=== PATIENT | female | born 1995 | race Caucasian/White ===

== ENCOUNTER 2016-12-12 08:20 | Observation (INO) | payer OTHER ==
[~2016-12-12] VITALS: Ht 160 cm; Wt 55.0 kg
[2016-12-12 08:22] VITALS: BP 124/62; PULSE 72; RESP 22; TEMP 97.7; O2SAT 99
[2016-12-12] MEDS ORDERED: SODIUM CHLOR 0.9% 1000 ML INJ 1,000 ML IV SCH ×2 (08:42→16:45)
[2016-12-12] MEDS ORDERED: PANTOPRAZOLE SODIUM 40 MG VIAL IVP ONE (08:45)
[2016-12-12] MEDS ORDERED: ONDANSETRON HCL 4 MG/2 ML VIAL IVP ONE (08:45)
[2016-12-12] MEDS ORDERED: MORPHINE SULFATE 4 MG/ML INJ IV PUSH ONE (08:45)
--- NOTE | 2016-12-12 08:46 | PD ---
HPI Chief Complaint: Abdominal Pain Time Seen by Provider: 08:35 Travel History International Travel<30 days: No Contact w/Intl Traveler<30days: No Traveled to known affect area: No History of Present Illness HPI 21-year-old female complains of right-sided abdominal pain with nausea vomiting. Patient states that the pain started this morning. Patient states the pain is severe sharp pain started on the right side abdomen with radiation to the back. Patient denies any fever chills. Patient denies any dysuria or frequency. Patient denies any vaginal discharge or bleeding. On a scale of 1- 10 the pain is a 10. PFSH Past Medical History Tetanus Vaccination: < 5 Years ?: Not LMP: 2 weeks ago Social History Alcohol Use: No Tobacco Use: No Substance Use: No Allergies-Medications (Allergen,Severity, Reaction): Coded Allergies: No Known Allergies (Unverified , 12/12/16) Reported Meds & Prescriptions Reported Meds & Active Scripts Active No Active Prescriptions or Reported Medications Review of Systems General / Constitutional: No: Fever Eyes: No: Visual changes HENT: No: Headaches Cardiovascular: No: Chest Pain or Discomfort Respiratory: No: Shortness of Breath Gastrointestinal: Positive: Nausea, Vomiting, Abdominal Pain Genitourinary: No: Dysuria Musculoskeletal: No: Pain Skin: No Rash Neurologic: No: Weakness Psychiatric: No: Depression Endocrine: No: Polydipsia Hematologic/Lymphatic: No: Easy Bruising Physical Exam Narrative GENERAL: Well-nourished, well-developed patient. SKIN: Focused skin assessment warm/dry. HEAD: Normocephalic. EYES: No scleral icterus. No injection or drainage. NECK: Supple, trachea midline. No JVD or lymphadenopathy. CARDIOVASCULAR: Regular rate and rhythm without murmurs, gallops, or rubs. RESPIRATORY: Breath sounds equal bilaterally. No accessory muscle use. GASTROINTESTINAL: Abdomen soft, nondistended. Patient has moderate tenderness on palpation right upper quadrant and right mid abdomen and right low quadrant of the abdomen. No rebound tenderness. No mass. MUSCULOSKELETAL: No cyanosis, or edema. BACK: Nontender without obvious deformity. No CVA tenderness. Pelvic exam: Patient has small amount of clear fluid in the vaginal vault. No cervical motion tenderness. Uterus is nonenlarged and nontender on palpation. No adnexal mass or tenderness. Neurologic exam normal. Data Data Last Documented VS Vital Signs Date Time Temp Pulse Resp B/P Pulse Ox O2 Delivery O2 Flow Rate FiO2 12/12/16 09:37 100 12/12/16 08:22 97.7 72 22 124/62 Orders Complete Blood Count With Diff (12/12/16 08:42) Comprehensive Metabolic Panel (12/12/16 08:42) Lipase (12/12/16 08:42) Urinalysis - C+S If Indicated (12/12/16 08:42) Ct Abd/Pel W Iv Contrast(Rout) (12/12/16 08:42) Iv Access Insert/Monitor (12/12/16 08:42) Ecg Monitoring (12/12/16 08:42) Oximetry (12/12/16 08:42) Morphine Inj (Morphine Inj) (12/12/16 08:45) Ondansetron Inj (Zofran Inj) (12/12/16 08:45) Pantoprazole Inj (Protonix Inj) (12/12/16 08:45) Sodium Chlor 0.9% 1000 Ml Inj (Ns 1000 M (12/12/16 08:42) Ed Urine Pregnancytest Poc (12/12/16 08:42) Morphine Inj (Morphine Inj) (12/12/16 09:00) Morphine Inj (Morphine Inj) (12/12/16 09:00) Iohexol 350 Inj (Omnipaque 350 Inj) (12/12/16 11:00) Morphine Inj (Morphine Inj) (12/12/16 11:30) Beta Hcg (Quant/Titer) (12/12/16 11:56) Gc And Chlamydia Pcr (12/12/16 11:56) Wet Prep Profile (12/12/16 11:56) Labs Laboratory Tests Test 12/12/16 12/12/16 08:43 10:30 White Blood Count 9.2 TH/MM3 Red Blood Count 4.28 MIL/MM3 Hemoglobin 12.1 GM/DL Hematocrit 35.6 % Mean Corpuscular Volume 83.2 FL Mean Corpuscular Hemoglobin 28.2 PG Mean Corpuscular Hemoglobin 33.9 % Concent Red Cell Distribution Width 14.9 % Platelet Count 238 TH/MM3 Mean Platelet Volume 7.8 FL Neutrophils (%) (Auto) 72.8 % Lymphocytes (%) (Auto) 19.7 % Monocytes (%) (Auto) 5.4 % Eosinophils (%) (Auto) 1.7 % Basophils (%) (Auto) 0.4 % Neutrophils # (Auto) 6.7 TH/MM3 Lymphocytes # (Auto) 1.8 TH/MM3 Monocytes # (Auto) 0.5 TH/MM3 Eosinophils # (Auto) 0.2 TH/MM3 Basophils # (Auto) 0.0 TH/MM3 CBC Comment DIFF FINAL Differential Comment Sodium Level 136 MEQ/L Potassium Level 3.4 MEQ/L Chloride Level 105 MEQ/L Carbon Dioxide Level 22.0 MEQ/L Anion Gap 9 MEQ/L Blood Urea Nitrogen 11 MG/DL Creatinine 0.97 MG/DL Estimat Glomerular Filtration 72 ML/MIN Rate Random Glucose 131 MG/DL Calcium Level 9.1 MG/DL Total Bilirubin 0.7 MG/DL Aspartate Amino Transf 19 U/L (AST/SGOT) Alanine Aminotransferase 20 U/L (ALT/SGPT) Alkaline Phosphatase 47 U/L Total Protein 7.8 GM/DL Albumin 3.9 GM/DL Lipase 179 U/L Urine Color YELLOW Urine Turbidity CLOUDY Urine pH 8.5 Urine Specific [place] 1.021 Urine Protein 30 mg/dL Urine Glucose (UA) NEG mg/dL Urine Ketones TRACE mg/dL Urine Occult Blood MOD Urine Nitrite NEG Urine Bilirubin NEG Urine Urobilinogen LESS THAN 2.0 MG/DL Urine Leukocyte Esterase NEG Urine RBC /hpf Urine WBC 6 /hpf Urine Squamous Epithelial 2 /hpf Cells Urine Amorphous Sediment FEW Urine Bacteria FEW /hpf Urine Mucus FEW /lpf Microscopic Urinalysis Comment CULT NOT INDICATED MDM Medical Decision Making Medical Screen Exam Complete: Yes Emergency Medical Condition: Yes Interpretation(s) 11:40 AM. Last Impressions Abdomen/Pelvis CT 12/12/16 0842 Signed Impressions: Service Date/Time: Monday, December 12, 2016 10:46 - CONCLUSION: 1. Prominent uterus containing moderate endometrial fluid with prominent left adnexa and associated mild hyperemia with probable left ovarian cyst and trace pelvic free fluid. Findings may be related to patient's phase of menstrual cycle. Clinical correlation for pelvic inflammatory disease is recommended. 2. Mild right- sided hydronephrosis and hydroureter extending to the mid to distal right ureter without calcified ureteral calculus. Differential considerations include right vesicoureteral reflux versus sequela of inflammatory change in the right lower quadrant/right pelvis. 3. The appendix is not directly visualized and likely obscured by changes in the pelvis. Although there are no definite secondary signs for appendicitis, early acute appendicitis cannot be excluded due to possibility of right lower quadrant inflammatory change. Andrzej Stokes MD 11:44 AM. CBC within normal limit. CMP within normal limit. UA positive with 6 WBC, large RBC. Differential Diagnosis Differential diagnosis including acute cholecystitis, nephrolithiasis, pyelonephritis, appendicitis, ovarian cyst, ovarian torsion, ectopic . Narrative Course 21-year-old female with right-sided abdominal pain with radiation to the right side the back. Normal saline solution 1 25 cc an hour. Morphine 2 mg IV. Zofran 4 mg IV. Protonix 40 mg IV. Repeated morphine 2 mg IV. Diagnosis Primary Impression: Abdominal pain Qualified Code: R10.31 - Right lower quadrant abdominal pain Admitting Information Admitting Physician Requests: Admit Scripts No Active Prescriptions or Reported Meds Aaron Kiser MD Dec 12, 2016 08:46
[2016-12-12 08:58] LABS: AUTOMATED NEUTROPHIL # 6.7 TH/MM3 (1.8-7.7); BASOPHIL % 0.4 % (0.0-2.0); EOSINOPHIL # 0.2 TH/MM3 (0-0.4); EOSINOPHIL % 1.7 % (0.0-4.0); HEMATOCRIT 35.6 % (35.0-46.0); HEMO FLAGS DIFF FINAL; LYMPH % 19.7 % (9.0-44.0); LYMPHOCYTE # 1.8 TH/MM3 (1.0-4.8); MEAN CELL VOLUME 83.2 FL (80.0-100.0); MEAN CORPUSCULAR HEMOGLOBIN 28.2 PG (27.0-34.0); MEAN CORPUSCULAR HGB CONC 33.9 % (32.0-36.0); MONO % 5.4 % (0.0-8.0); NEUT % 72.8 % (16.0-70.0); PLATELET COUNT 238 TH/MM3 (150-450); RED BLOOD COUNT 4.28 MIL/MM3 (4.00-5.30); RED CELL DISTRIBUTION WIDTH 14.9 % (11.6-17.2); WHITE BLOOD COUNT 9.2 TH/MM3 (4.0-11.0)
[2016-12-12] MEDS ORDERED: MORPHINE SULFATE 8 MG/ML INJ IV PUSH ONE ×3 (09:00→11:30)
[2016-12-12 09:21] LABS: ALT (GPT) 20 U/L (10-53); ANION GAP 9 MEQ/L (5-15); AST (GOT) 19 U/L (15-37); BLOOD UREA NITROGEN 11 MG/DL (7-18); CHLORIDE 105 MEQ/L (98-107); GLOMERULAR FILTRATION RATE 72 ML/MIN (>89); POTASSIUM 3.4 MEQ/L (3.5-5.1); SODIUM (NA) 136 MEQ/L (136-145)
[2016-12-12 09:22] LABS: ALKALINE PHOSPHATASE 47 U/L (45-117); TOTAL BILIRUBIN ADULT 0.7 MG/DL (0.2-1.0)
[2016-12-12 09:37] VITALS: O2SAT 100
[2016-12-12] MEDS ORDERED: IOHEXOL 350 MG/ML 10 ML VIAL (for RAD DIAG) IV ONE (11:00)
[2016-12-12 11:04] LABS: BACTERIA, URINE FEW /hpf; BLOOD, URINE MOD (NEG); COMMENT (UR) CULT NOT INDICATED; CULTURE IF INDICATED CULT NOT INDICATED; GLUCOSE,URINE NEG (NEG); KETONE, URINE TRACE mg/dL (NEG); MUCUS URINE FEW /lpf (OCC); NITRITE,URINE NEG (NEG); PH, URINE 8.5 (5.0-8.5); SQUAMOUS EPITHELIAL CELL URINE 2 /hpf (0-5); URINE COLOR YELLOW (YELLW/STRAW)
--- NOTE | 2016-12-12 11:29 | RADRPT ---
EXAM DATE/TIME: 12/12/2016 10:46 [facility] COMPARISON: No previous studies available for comparison. INDICATIONS : Right sided abdominal pain. Nausea and vomiting. IV CONTRAST: 90 cc Omnipaque 350 (iohexol) IV ORAL CONTRAST: No oral contrast ingested. RADIATION DOSE: 4.60 CTDIvol (mGy) MEDICAL HISTORY : None SURGICAL HISTORY : None. ENCOUNTER: Initial ACUITY: 1 day PAIN SCALE: 8/10 LOCATION: Right lower quadrant TECHNIQUE: Volumetric scanning of the abdomen and pelvis was performed. Using automated exposure control and ad justment of the mA and/or kV according to patient size, radiation dose was kept as low as reasonably achievable to obtain optimal diagnostic quality images. DICOM format image data is available electro nically for review and comparison. FINDINGS: LOWER LUNGS: The visualized lower lungs are clear. LIVER: Homogeneous density without lesion. There is no dilation of the biliary tree. No calcified gallston es. SPLEEN: Normal size without lesion. PANCREAS: Within normal limits. KIDNEYS: There is mild right-sided hydronephrosis and proximal hydroureter to the mid to distal right ureter. No radiopaque ureteral calculi is noted. Kidneys otherwise demonstrate symmetrical enhancement withou t evidence for focal mass. ADRENAL GLANDS: Within normal limits. VASCULAR: There is no aortic aneurysm. BOWEL/MESENTERY: Appendix is not directly visualized and may be obscured by prominent uterus and adnexal changes. Ther e is no significant pericecal mesenteric adenopathy. Bowel otherwise appears unremarkable without cami dence for obstruction. No pneumatosis or free air. No drainable fluid collections. ABDOMINAL WALL: Within normal limits. RETROPERITONEUM: There is no lymphadenopathy. BLADDER: Completely decompressed. REPRODUCTIVE: Uterus is prominent with moderate amount of endometrial fluid. There is increased left adnexal vascul arity with likely 2.6 cm left ovarian cyst. There is also trace amount of free fluid in the pelvis. INGUINAL: There is no lymphadenopathy or hernia. MUSCULOSKELETAL: Within normal limits for patient age. CONCLUSION: 1. Prominent uterus containing moderate endometrial fluid with prominent left adnexa and associated m ild hyperemia with probable left ovarian cyst and trace pelvic free fluid. Findings may be related to patient's phase of menstrual cycle. Clinical correlation for pelvic inflammatory disease is recommen ded. 2. Mild right-sided hydronephrosis and hydroureter extending to the mid to distal right ureter withou t calcified ureteral calculus. Differential considerations include right vesicoureteral reflux versus sequela of inflammatory change in the right lower quadrant/right pelvis. 3. The appendix is not directly visualized and likely obscured by changes in the pelvis. Although the re are no definite secondary signs for appendicitis, early acute appendicitis cannot be excluded due to possibility of right lower quadrant inflammatory change. Andrzej Stokes MD on December 12, 2016 at 11:01 Board Certified Radiologist. This report was verified electronically.
[2016-12-12 12:23] LABS: BETA HCG QUANT LESS THAN 1 MIU/ML (0-5)
[2016-12-12] MEDS ORDERED: MAGNESIUM HYDROXIDE SUSP 30 ML CUP PO PRN (13:00)
[2016-12-12] MEDS ORDERED: SODIUM CHLORIDE 0.9% FLUSH 10 ML FLUSH IV FLUSH PRN (13:00)
[2016-12-12] MEDS ORDERED: ACETAMINOPHEN/HYDROcodone 325 MG/7.5 MG TAB PO PRN (13:00)
[2016-12-12] MEDS ORDERED: HYDROmorphone HCL PF 1 MG/ML VIAL IV PUSH PRN (13:00)
[2016-12-12] MEDS ORDERED: SENNOSIDES 8.6 MG TAB PO PRN (13:00)
[2016-12-12] MEDS ORDERED: ACETAMINOPHEN/HYDROcodone 325 MG/10 MG TAB PO PRN (13:00)
[2016-12-12] MEDS ORDERED: BISACODYL 10 MG SUPP RECTAL PRN (13:00)
[2016-12-12] MEDS ORDERED: LACTULOSE SYRUP 20 GM/30 ML CUP PO PRN (13:00)
[2016-12-12] MEDS ORDERED: NALOXONE HCL 0.4 MG/ML AMP IV PRN (13:00)
[2016-12-12] MEDS ORDERED: ONDANSETRON HCL 4 MG/2 ML VIAL IVP PRN (13:00)
[2016-12-12 15:25] LABS: CHLAMYDIA PCR NOT DETECTED (NOT DETECT); NEISSERIA PCR NOT DETECTED (NOT DETECT)
[2016-12-12] MEDS ORDERED: FUROSEMIDE 40 MG/4 ML VIAL ONE (15:33)
--- NOTE | 2016-12-12 16:37 | HHI.HP ---
HPI Service [facility] Hospitalists Primary Care Physician Non-Staff Admission Diagnosis abdominal pain Diagnoses: Chief Complaint: Right sided abominal pain N/V Chills Travel History International Travel<30 Days: No Contact w/Intl Traveler <30 Da: No Traveled to Known Affected Are: No History of Present Illness Written by Joana Weinberg PA-C acting as scribe for Dr. Shearer on 12/12/16 at 16:34. This is a 21yo female without any significant PMHX who presented to [facility] ED with complaints of right sided abdominal pain. Patient states she woke up at 5am this morning with right sided abdominal pain that radiates around to the right side of her back with associated chills. Patient denies any known fevers. States she has vomited three times this morning, once at her hotel and twice while in the ED. She states her abdominal pain worsened to 10/ 10 after vomiting. She denies any dysuria or difficulty with urination. She also denies any diarrhea or constipation. Her last BM was yesterday. Her last menstrual period was 2 weeks ago. She denies any previous history of kidney stones. She denies any chest pain or SOB. In the ED, patient reports her pain is 5/10 after receiving Morphine. She is afebrile and her white count is normal. Creatinine is 0.97 and GFR is slightly reduced at 72. LFTs are WNL. CT of the abdomen was obtained and revealed mild right sided hydronephrosis and hydroureter extending to the mid to distal right ureter without calcified ureteral calculus. The appendix is not directly visualized and likely obscured by changes in the pelvis. No definite signs of appendicitis but early acute appendicitis cannot be excluded. Review of Systems Except as stated in HPI: all other systems reviewed are Neg Past Family Social History Past Medical History Denies any significant PMHX Past Surgical History Foot surgery Reported Medications Patient denies taking any prescribed medications at home Allergies: Coded Allergies: No Known Allergies (Unverified , 12/12/16) Active Ordered Medications Current Medications Medications (Trade) Dose Ordered Sig/Talita Route Start Time Stop Time Status Last Admin (NS 1000 ml Inj) 1,000 ml @ 125 mls/hr Q8H IV 12/12/16 08:42 12/12/16 16:41 12/12/16 09:18 (NS Flush) 2 ml UNSCH PRN IV FLUSH 12/12/16 13:00 (NS Flush) 2 ml BID IV FLUSH 12/12/16 21:00 (Zofran Inj) 4 mg Q6H PRN IVP 12/12/16 13:00 (Narcan Inj) 0.4 mg UNSCH PRN IV 12/12/16 13:00 (Bev-Colace) 1 tab BID PO 12/12/16 21:00 (Milk Of Magnesia Liq) 30 ml Q12H PRN PO 12/12/16 13:00 (Senokot) 17.2 mg Q12H PRN PO 12/12/16 13:00 (Dulcolax Supp) 10 mg DAILY PRN RECTAL 12/12/16 13:00 (Lactulose Liq) 30 ml DAILY PRN PO 12/12/16 13:00 ([place] 7.5-325 Mg) 1 tab Q4H PRN PO 12/12/16 13:00 ([place] 10-325 Mg) 1 tab Q4H PRN PO 12/12/16 13:00 (Dilaudid Pf Inj) 0.5 mg Q4H PRN IV PUSH 12/12/16 13:00 Family History Mother, h/o previous kidney stones otherwise alive and healthy Father, alive and healthy Social History Patient denies any history of tobacco use, EtOH consumption or illicit drug use. Physical Exam Vital Signs Vital Signs Date Time Temp Pulse Resp B/P Pulse Ox O2 Delivery O2 Flow Rate FiO2 12/12/16 09:37 100 12/12/16 08:22 97.7 72 22 124/62 99 Physical Exam GENERAL: This is a well-nourished, well-developed patient, in no apparent distress. Awake and alert. Mother at the bedside. Appears uncomfortable. SKIN: No rashes, ecchymoses or lesions. Cool and dry. HEAD: Atraumatic. Normocephalic. No temporal or scalp tenderness. EYES: Pupils equal round and reactive. Extraocular motions intact. No scleral icterus. No injection or drainage. ENT: Nose without bleeding. Throat without erythema, tonsillar hypertrophy or exudate. Uvula midline. Airway patent. NECK: Trachea midline. No lymphadenopathy. Supple, nontender, no meningeal signs. CARDIOVASCULAR: Regular rate and rhythm without murmurs, gallops, or rubs. RESPIRATORY: Clear to auscultation. Breath sounds equal bilaterally. No wheezes , rales, or rhonchi. GASTROINTESTINAL: Abdomen soft, nondistended. (+)tender to deep palpation over RLQ. No rigidity. No rebound. No hepato-splenomegaly, or palpable masses. No CVAT bilaterally. MUSCULOSKELETAL: Extremities without clubbing, cyanosis, or edema. No joint tenderness, effusion, or edema noted. No calf tenderness. Negative Homans sign bilaterally. NEUROLOGICAL: Awake and alert. Able to move all extremities. No focal neurologic findings appreciated. Normal speech. Laboratory Laboratory Tests Test 12/12/16 12/12/16 12/12/16 08:43 10:30 12:10 White Blood Count 9.2 Red Blood Count 4.28 Hemoglobin 12.1 Hematocrit 35.6 Mean Corpuscular Volume 83.2 Mean Corpuscular Hemoglobin 28.2 Mean Corpuscular Hemoglobin 33.9 Concent Red Cell Distribution Width 14.9 Platelet Count 238 Mean Platelet Volume 7.8 Neutrophils (%) (Auto) 72.8 Lymphocytes (%) (Auto) 19.7 Monocytes (%) (Auto) 5.4 Eosinophils (%) (Auto) 1.7 Basophils (%) (Auto) 0.4 Neutrophils # (Auto) 6.7 Lymphocytes # (Auto) 1.8 Monocytes # (Auto) 0.5 Eosinophils # (Auto) 0.2 Basophils # (Auto) 0.0 CBC Comment DIFF FINAL Differential Comment Sodium Level 136 Potassium Level 3.4 Chloride Level 105 Carbon Dioxide Level 22.0 Anion Gap 9 Blood Urea Nitrogen 11 Creatinine 0.97 Estimat Glomerular Filtration 72 Rate Random Glucose 131 Calcium Level 9.1 Total Bilirubin 0.7 Aspartate Amino Transf 19 (AST/SGOT) Alanine Aminotransferase 20 (ALT/SGPT) Alkaline Phosphatase 47 Total Protein 7.8 Albumin 3.9 Lipase 179 Human Chorionic Gonadotropin, LESS THAN 1 Quant Urine Color YELLOW Urine Turbidity CLOUDY Urine pH 8.5 Urine Specific [place] 1.021 Urine Protein 30 Urine Glucose (UA) NEG Urine Ketones TRACE Urine Occult Blood MOD Urine Nitrite NEG Urine Bilirubin NEG Urine Urobilinogen LESS THAN 2.0 Urine Leukocyte Esterase NEG Urine RBC Urine WBC 6 Urine Squamous Epithelial 2 Cells Urine Amorphous Sediment FEW Urine Bacteria FEW Urine Mucus FEW Microscopic Urinalysis Comment CULT NOT INDICATED Clue Cells (Wet Prep) NONE SEEN Vaginal Trichomonas (Wet Prep) NONE SEEN Vaginal Yeast (Wet Prep) NONE SEEN Chlamydia trachomatis DNA NOT DETECTED (PCR) Neisseria gonorrhoeae DNA NOT DETECTED (PCR) Result Diagram: 12/12/1643 12/12/16842 Imaging Last Impressions Abdomen/Pelvis CT 12/12/16841 Signed Impressions: Service Date/Time: Monday, December 12, 2016 10:46 - CONCLUSION: 1. Prominent uterus containing moderate endometrial fluid with prominent left adnexa and associated mild hyperemia with probable left ovarian cyst and trace pelvic free fluid. Findings may be related to patient's phase of menstrual cycle. Clinical correlation for pelvic inflammatory disease is recommended. 2. Mild right- sided hydronephrosis and hydroureter extending to the mid to distal right ureter without calcified ureteral calculus. Differential considerations include right vesicoureteral reflux versus sequela of inflammatory change in the right lower quadrant/right pelvis. 3. The appendix is not directly visualized and likely obscured by changes in the pelvis. Although there are no definite secondary signs for appendicitis, early acute appendicitis cannot be excluded due to possibility of right lower quadrant inflammatory change. Andrzej Stokes MD Assessment and Plan Assessment and Plan 21yo female without any significant PMHX who presented to [facility] ED with complaints of right sided abdominal pain. Right sided abdominal pain with chills and N/V - Etiology unknown - CT of the abdomen/pelvis shows mild right sided hydronephrosis and hydroureter extending to the mid to distal right ureter without calcified ureteral calculus. The appendix is not directly visualized and likely obscured by changes in the pelvis. No definite signs of appendicitis but early acute appendicitis cannot be excluded. - Urine test less than 1 - Pelvic exam was deferred: Wet prep done in ER, negative for clue cells, trichomonas and yeast. Chlamydia/GC probe negative. - UA positive with 6 WBC and large RBC but culture not indicated - Keep NPO for now as urology and GS have been consulted. f/u assessment and recs - IVF hydration with NS at 84 mls/hr and 20mEq KCl - pain management with [place] 5/325mg one po q 4h prn pain 1 to 5, [place] 10/ 325mg one po q4h prn pain 6 to 10 and Dilaudid 0.5mg q4h prn breakthrough pain - IV Zofran prn N/V Abnormal U/A: pt denies any urinary symptoms. Hypokalemia - mild - replete - am labs to monitor trend DVT prophylaxis - SCD/RAMIN hose bilaterally This note was transcribed by dunia Weinberg. I, Dr. Juliette Shearer personally performed the history, physical exam, and medical decision making; and confirmed the accuracy of the information in the transcribed note. Authenticated by Dr. Juliette Shearer on 12/12/16 at 16:34. Code Status full code Discussed Condition With ED physician, patient and patients mother Joana Weinberg Dec 12, 2016 16:37 Juliette Shearer MD Dec 12, 2016 18:07
--- NOTE | 2016-12-12 16:46 | RADRPT ---
EXAM DATE/TIME: 12/12/2016 15:43 [facility] COMPARISON: CT ABDOMEN & PELVIS W CONTRAST, December 12, 2016, 10:46. INDICATIONS : Hydronephrosis. Right flank pain with nausea and vomiting. DOSE: 21.9 mCi Tc99m DTPA IV MEDICATION: 40 mg Lasix IV MEDICAL HISTORY : None SURGICAL HISTORY : None. ENCOUNTER: Initial ACUITY: 1 day PAIN SCALE: 5/10 LOCATION: Right flank TECHNIQUE: Dynamic images were performed in the posterior projection for a total of 28 minutes. FINDINGS: FLOW: There is symmetric arrival of bolus to both kidneys. There is intact cortical transit on the left wit h delayed cortical transit on the right. EXCRETION: There is normal excretion on the left. There is delayed cortical transit on the left. Split function 66.5% left CONCLUSION: Asymmetric enhancement with delayed cortical transit on the right. In reviewing the CT scan in [facility] there is a 2-3 mm distal right ureteral stone. Jamal Wagoner MD on December 12, 2016 at 16:41 Board Certified Radiologist. This report was verified electronically.
[2016-12-12 17:27] VITALS: BP 109/65; PULSE 56; RESP 15; TEMP 98.5; O2SAT 100
--- NOTE | 2016-12-12 18:29 | MB ---
cc: BLAKE WARE M.D. DATE OF CONSULTATION: 12/12/2016. REASON FOR CONSULTATION: Rule out appendicitis. HISTORY OF PRESENT ILLNESS: Ms. Amin is very pleasant 21-year-old female down here on vacation from [place] who developed acute onset of right flank and right lower quadrant abdominal pain this morning. She states when she first woke up from sleep, she had the pain. She states the pain became severe and intense almost immediately. She rated the pain as a 10/10. Her mother states that she was writhing in pain. She denied any previous pain. She got very nauseous and had an episode of emesis secondary to the pain. She denied any fever or chills. She denied any change in bowel or bladder habits. She denied any gross hematuria that she was aware of. She denied any vaginal discharge. The patient was brought to [facility] for evaluation where she was seen and evaluated by Dr. Kiser. Dr. Kiser worked her up and the most likely diagnosis was a right-sided kidney stone as the patient had right flank and right lower quadrant abdominal pain. Her abdominal exam was fairly benign according to Dr. Kiser. She was noted have a normal white count as well as a dilated ureter on the right side. Dr. Kiser admitted the patient to medical service for observation. The medical service requested a surgical evaluation to rule out appendicitis. PAST MEDICAL HISTORY: None. PAST SURGICAL HISTORY: She had foot correction surgery. MEDICATIONS: She takes no medications. ALLERGIES: She has NO KNOWN DRUG ALLERGIES. SOCIAL HISTORY: She denies cigarette and alcohol use. She is down here vacationing with her family from [place]. REVIEW OF SYSTEMS: For her review of systems, please see the history of present illness. PHYSICAL EXAMINATION: VITAL SIGNS: Temperature is 97, pulse is 70, blood pressure 120/60, respiratory rate 20. GENERAL: This is a pleasant thin young female accompanied by her family in the observation pod . HEAD, EYES, EARS, NOSE, THROAT: Pupils equal and reactive to light. Sclerae are white. Oropharynx is clear and moist. NECK: Neck is supple. No masses. LUNGS: Clear to auscultation bilaterally. HEART: S1-S2 no murmur. ABDOMEN: Abdomen is completely soft. Minimal tenderness in the right lower quadrant. No rebound or guarding. No abdominal masses. Active bowel sounds are noted. Negative Rovsing's sign. Negative psoas sign. EXTREMITIES: Free range of motion x4. NEUROLOGIC: Alert and oriented x3. IMAGING STUDIES: CT scan of pelvis does not demonstrate a dilated appendix that I can appreciate. There is no significant inflammatory process in the right lower quadrant that I can appreciate. The patient does have a mild right-sided hydronephrosis and hydroureter with no obvious kidney stones. LABORATORY DATA: White blood cell count is 90, hemoglobin 12, platelet count is 238,000. Electrolytes are all within normal limits. HCG is negative. Urine is positive for a moderate amount of blood. No evidence of a urinary tract infection. IMPRESSION: Probable nephrolithiasis, seriously doubt appendicitis. PLAN: At this point based on the patient's history, physical examination, and laboratory and data imaging, I feel like appendicitis is an extremely low probability. Her acute onset of 10/10 abdominal pain in the right flank and right lower quadrant are more consistent with a kidney stone than they are appendicitis. She has a normal white count. She has no fever. Her abdominal exam is very benign anteriorly. I explained to her family that we could certainly re-check her abdominal exam in the morning as well as her white count. If she develops right lower quadrant abdominal pain or an elevated white count, we could consider a diagnostic laparoscopy but I explained to them that I think this would be a low probability at this point. The family expressed gratitude towards my evaluation and the fact that we do not need any surgical procedure, at least this evening. From my standpoint, feel free to go ahead and feed the patient and then she can be made NPO after midnight. Thank you so much for allowing me to participate in the care of this patient. MD CARLOS ALBERTO Beyer/TAMARA /4:14 PM /6:24 PM
[2016-12-12] MEDS: NS + KCL 20 MEQ INJ 1,000 ML IV SCH (18:47)
[2016-12-12] MEDS: SODIUM CHLORIDE 0.9% FLUSH 10 ML FLUSH IV FLUSH SCH (20:23)
[2016-12-12] MEDS: DOCUSATE SODIUM 50 MG/SENNA 8.6 MG TAB PO SCH (20:24)
[2016-12-12 20:43] VITALS: BP 106/80; PULSE 63; RESP 18; TEMP 97.8; O2SAT 99
[2016-12-13 05:12] VITALS: BP 130/63; PULSE 59; RESP 18; TEMP 97.9; O2SAT 99
[2016-12-13 07:07] LABS: BASOPHIL % 0.2 % (0.0-2.0); EOSINOPHIL # 0.2 TH/MM3 (0-0.4); EOSINOPHIL % 2.1 % (0.0-4.0); HEMATOCRIT 35.1 % (35.0-46.0); HEMO FLAGS DIFF FINAL; LYMPH % 25.7 % (9.0-44.0); LYMPHOCYTE # 2.4 TH/MM3 (1.0-4.8); MEAN CELL VOLUME 83.7 FL (80.0-100.0); MEAN CORPUSCULAR HEMOGLOBIN 27.8 PG (27.0-34.0); MEAN CORPUSCULAR HGB CONC 33.2 % (32.0-36.0); MONO % 8.8 % (0.0-8.0); NEUT % 63.2 % (16.0-70.0); PLATELET COUNT 237 TH/MM3 (150-450); RED BLOOD COUNT 4.19 MIL/MM3 (4.00-5.30); RED CELL DISTRIBUTION WIDTH 15.1 % (11.6-17.2); WHITE BLOOD COUNT 9.5 TH/MM3 (4.0-11.0)
[2016-12-13 07:35] LABS: BICARBONATE 23.7 MEQ/L (21.0-32.0); POTASSIUM 3.6 MEQ/L (3.5-5.1)
[2016-12-13] MEDS: SODIUM CHLORIDE 0.9% FLUSH 10 ML FLUSH IV FLUSH SCH (08:01)
[2016-12-13 08:13] VITALS: BP 101/55; PULSE 82; RESP 15; TEMP 98.5; O2SAT 98
[2016-12-13] MEDS: DOCUSATE SODIUM 50 MG/SENNA 8.6 MG TAB PO SCH (08:20)
[2016-12-13] MEDS: NS + KCL 20 MEQ INJ 1,000 ML IV SCH (08:21)
--- NOTE | 2016-12-13 09:38 | HHI.PR ---
Subjective Subjective Notes Resting in bed Mother at bedside Feeling better today; eager to go home Objective Vitals/I&O Vital Signs Date Time Temp Pulse Resp B/P Pulse Ox O2 Delivery O2 Flow Rate FiO2 12/13/16 08:13 98.5 82 15 101/55 98 Labs Laboratory Tests Test 12/12/16 12/12/16 12/13/16 10:30 12:10 06:23 Urine Color YELLOW Urine Turbidity CLOUDY Urine pH 8.5 Urine Specific [place] 1.021 Urine Protein 30 Urine Glucose (UA) NEG Urine Ketones TRACE Urine Occult Blood MOD Urine Nitrite NEG Urine Bilirubin NEG Urine Urobilinogen LESS THAN 2.0 Urine Leukocyte Esterase NEG Urine RBC Urine WBC 6 Urine Squamous Epithelial 2 Cells Urine Amorphous Sediment FEW Urine Bacteria FEW Urine Mucus FEW Microscopic Urinalysis Comment CULT NOT INDICATED Clue Cells (Wet Prep) NONE SEEN Vaginal Trichomonas (Wet Prep) NONE SEEN Vaginal Yeast (Wet Prep) NONE SEEN Chlamydia trachomatis DNA NOT DETECTED (PCR) Neisseria gonorrhoeae DNA NOT DETECTED (PCR) White Blood Count 9.5 Red Blood Count 4.19 Hemoglobin 11.7 Hematocrit 35.1 Mean Corpuscular Volume 83.7 Mean Corpuscular Hemoglobin 27.8 Mean Corpuscular Hemoglobin 33.2 Concent Red Cell Distribution Width 15.1 Platelet Count 237 Mean Platelet Volume 7.6 Neutrophils (%) (Auto) 63.2 Lymphocytes (%) (Auto) 25.7 Monocytes (%) (Auto) 8.8 Eosinophils (%) (Auto) 2.1 Basophils (%) (Auto) 0.2 Neutrophils # (Auto) 6.0 Lymphocytes # (Auto) 2.4 Monocytes # (Auto) 0.8 Eosinophils # (Auto) 0.2 Basophils # (Auto) 0.0 CBC Comment DIFF FINAL Differential Comment Sodium Level 141 Potassium Level 3.6 Chloride Level 110 Carbon Dioxide Level 23.7 Anion Gap 7 Blood Urea Nitrogen 14 Creatinine 1.01 Estimat Glomerular Filtration 69 Rate Random Glucose 71 Calcium Level 8.6 Cardiovascular: Regular Lungs: Clear Abdomen: Non-distended, Non-tender Extremities: No edema A/P Assessment and Plan 21 year old female with abdominal pain; rule out appendicitis -Abdominal exam benign -Okay for regular diet -No surgical plans at this time -Await Urology evaluation -GS clear for DC -No follow up needed Catherine Warren Dec 13, 2016 09:38
--- NOTE | 2016-12-13 10:44 | HHI.PR ---
Subjective Remarks Pt feeling a lot better this morning. Pain has resolved. Would like to go home soon. Denies any CP/SOB/N/V Mother enquiring when urology will be rounding. Objective Vitals Vital Signs Date Time Temp Pulse Resp B/P Pulse Ox O2 Delivery O2 Flow Rate FiO2 12/13/16 08:13 98.5 82 15 101/55 98 12/13/16 05:12 97.9 59 18 130/63 99 12/12/16 20:43 97.8 63 18 106/80 99 12/12/16 17:27 98.5 56 15 109/65 100 Result Diagram: 12/13/16 0623 12/13/16 0623 Imaging Last Impressions Abdomen/Pelvis CT 12/12/16 0842 Signed Impressions: Service Date/Time: Monday, December 12, 2016 10:46 - CONCLUSION: 1. Prominent uterus containing moderate endometrial fluid with prominent left adnexa and associated mild hyperemia with probable left ovarian cyst and trace pelvic free fluid. Findings may be related to patient's phase of menstrual cycle. Clinical correlation for pelvic inflammatory disease is recommended. 2. Mild right- sided hydronephrosis and hydroureter extending to the mid to distal right ureter without calcified ureteral calculus. Differential considerations include right vesicoureteral reflux versus sequela of inflammatory change in the right lower quadrant/right pelvis. 3. The appendix is not directly visualized and likely obscured by changes in the pelvis. Although there are no definite secondary signs for appendicitis, early acute appendicitis cannot be excluded due to possibility of right lower quadrant inflammatory change. Andrzej Stokes MD Renal Scan w/Medication NM 12/12/16 0000 Signed Impressions: Service Date/Time: Monday, December 12, 2016 15:43 - CONCLUSION: Asymmetric enhancement with delayed cortical transit on the right. In reviewing the CT scan in retrospect there is a 2-3 mm distal right ureteral stone. Jamal Wagoner MD Objective Remarks GENERAL: This is a well-nourished, well-developed patient, in no apparent distress. Awake and alert. Mother at the bedside. Appears uncomfortable. SKIN: No rashes, ecchymoses or lesions. Cool and dry. HEAD: Atraumatic. Normocephalic. EYES: Extraocular motions intact. ENT: Nose without bleeding. Airway patent. NECK: Trachea midline. CARDIOVASCULAR: Regular rate and rhythm without murmurs RESPIRATORY: Clear to auscultation. Breath sounds equal bilaterally. No wheezes GASTROINTESTINAL: Abdomen soft, nondistended. non tender. No rigidity. No rebound. No CVAT bilaterally. MUSCULOSKELETAL: Extremities without edema. No joint tenderness, effusion, or edema noted. No calf tenderness. Negative Homans sign bilaterally. NEUROLOGICAL: Awake and alert. Able to move all extremities. No focal neurologic findings appreciated. Normal speech. A/P Assessment and Plan 21yo female without any significant PMHX who presented to [facility] ED with complaints of right sided abdominal pain. Right sided abdominal pain with chills and N/V - Etiology unknown - CT of the abdomen/pelvis shows mild right sided hydronephrosis and hydroureter extending to the mid to distal right ureter without calcified ureteral calculus. The appendix is not directly visualized and likely obscured by changes in the pelvis. No definite signs of appendicitis but early acute appendicitis cannot be excluded. - Renal scan: Asymmetric enhancement with delayed cortical transit on the right. In reviewing the CT scan in retrospect there is a 2-3 mm distal right ureteral stone. Pt now has no symptoms. Cr slightly elevated to 1.01 - Urine test less than 1 - Pelvic exam was deferred: Wet prep done in ER, negative for clue cells, trichomonas and yeast. Chlamydia/GC probe negative. - UA positive with 6 WBC and large RBC but culture not indicated. No urinary symptoms. - Keep NPO until evaluated by urology. GS evaluated the patient and doesn't recommend any surgical intervention. They have cleared her for d/c - IVF hydration with NS at 84 mls/hr and 20mEq KCl - pain resolved. pain meds available prn - IV Zofran prn N/V Abnormal U/A: pt denies any urinary symptoms. Hypokalemia resolved DVT prophylaxis - SCD/RAMIN hose bilaterally Discharge Planning awaiting final recs from urology. if no intervention needed, ok to d/c home later today Juliette Shearer MD Dec 13, 2016 10:44
[2016-12-13 10:58] VITALS: BP 99/59; PULSE 60; RESP 15; TEMP 98; O2SAT 97
--- NOTE | 2016-12-13 13:21 | MB ---
cc: STEVE VALDEZ MD DATE OF SERVICE 12/13/2016 CHIEF COMPLAINT 1. Right-sided flank pain. 2. Right hydronephrosis. 3. Distal right ureteral stone. HISTORY OF PRESENT ILLNESS The patient is a 21-year-old otherwise healthy female who presented to the [place] ED yesterday with complaints of acute onset of right-sided flank pain radiating to her groin, 10/10 in nature, described as sharp and stabbing, associated with chills, nausea and vomiting. She denied any dysuria, hematuria or urgency or frequency as well as diarrhea or constipation. In the ER she had a CT of the abdomen and pelvis with IV contrast done which showed right hydroureter nephrosis but no obvious stone causing obstruction. She was found to have a normal white count. Creatinine was at 0.97. She is admitted for pain control and Urology was consulted for the right hydronephrosis as well as General Surgery for possible appendicitis. She was seen by General Surgery who evaluated her for appendicitis. Currently overnight her pain has completely resolved. She is quite comfortable at this time. She denies any prior episodes like this in the past. She has had an occasional urinary tract infection but does not get them recurrently. Her Mom has had kidney stones in the past as well. She denies any family history of genitourinary malignancies. REVIEW OF SYSTEMS See HPI. Otherwise all systems reviewed, otherwise are negative. PAST HISTORY Urinary tract infections. PAST SURGICAL HISTORY She had foot surgery REPORTED MEDICATIONS She does not take any home medications. ALLERGIES TO MEDICATIONS No known drug allergies. FAMILY HISTORY Mom had kidney stones, otherwise no evidence of malignancies. SOCIAL HISTORY Denies any history of tobacco, illicit drug or alcohol consumption. PHYSICAL EXAMINATION VITAL SIGNS: Temperature 98.0, pulse 60, respiratory rate 15, BP 99/59, sating 97% on room air. GENERAL: She is alert and oriented x 3. In no acute distress. Very pleasant and cooperative young lady who appears her stated age. HEAD: Normocephalic, atraumatic. SKIN: No ulcers or rashes. The mucous membranes are pink and moist. NECK: Supple. Trachea is midline. No JVD. EYES: No scleral icterus. Extraocular muscles intact. LUNGS: Clear to auscultation bilaterally. No wheezes, rales or rhonchi. HEART: Regular rate and rhythm. No murmurs, gallops or rubs. ABDOMEN: Soft, nontender, nondistended. Positive bowel sounds. GENITOURINARY EXAM: No CVA tenderness bilaterally. PELVIC EXAM: Not indicated at this time. EXTREMITIES: Nontender. No clubbing, cyanosis or edema. PSYCH: Normal affect. NEUROLOGIC: Cranial nerves II-XII intact. Strength 5/5 in all four extremities. LABORATORY DATA Labs show a white count of 9.5, hemoglobin 11.7, hematocrit 35.7, platelet count 237. Sodium 141, potassium 2.6, chloride 100, bicarb 23.7, BUN 14, creatinine 1.01. Urine showed cloudy with moderate blood and 6 white blood cells. Culture not pending. IMAGING STUDIES CT of the abdomen and pelvis with IV contrast was reviewed. She does have a right hydronephrosis but there appears to be a 2-3 mm stone in her distal right ureter. ASSESSMENT AND PLAN The patient is a 21-year-old female who presented with acute onset of right flank pain, nausea and vomiting which has currently resolved. PLAN In reviewing the images, the CT, the patient did appear to have a 2-3 mm distal right ureteral stone which the radiologist did confirm. Due to the size of the stone and the location, she has a very high likelihood of passing a stone. Since her symptoms have resolved, she likely has passed the stone at some point over the night. From the Urology standpoint it is okay for her to be discharged home. I did discuss a stone diet with her including adequate hydration in which she drinks half her body weight in ounces of water daily and to limit her salt intake. I also discussed with her the fact that she has a 50% chance of having another stone within the next 10 years. All questions asked were answered between herself and her mother at this time. At this time no acute urological intervention is required. Thank you for this consult. Steve Valdez MD EMNorberto/KEVIN /12:57 PM /1:07 PM
[2016-12-13] MEDS ORDERED: POTASSIUM CHLORIDE INJ 20 MEQ in SODIUM CHLOR 0.9% 1000 ML INJ 1,000 ML IV SCH (16:45)
== END 2016-12-13 13:24 | disposition home or self-care (01) ==
LOC: NEPE 08:20 → NEDA 12:57 → NEPHCDU 15:12
PROVIDERS: ADMIT Hospitalist; ATTEND Hospitalist
DX: N13.2 Hydronephrosis with renal and ureteral calculous obstruction (principal); E87.6 Hypokalemia; R10.9 Unspecified abdominal pain; Z87.440 Personal history of urinary (tract) infections
CPT/HCPCS: 74177; 78708; 80048; 80053; 81001; 83690; 84702; 84703; 85025; 87210; 87491; 87591; 96374; 96375; 96376; 99285; A9539; C9113; G0378; J1940; J2270; J2405; J3480; J7030; Q9967